=== PATIENT | male | born 1960 | race Caucasian/White ===

== ENCOUNTER 2022-11-22 17:20 | Inpatient (IN) ==
--- NOTE | 2022-11-22 17:27 | ED Triage Note ---
Date of Service November 22, 2022 History of Present Illness This patient was briefly evaluated while in triage. An abbreviated physical exam was performed. This patient is a 62-year-old Male who presents to the ED for evaluation of dizziness, near syncope Just flew in from 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 Nontender to palpation. Initial orders for labs and / or imaging were placed and patient was placed in the waiting area until a bed is available. Please see further documentation for the full ED course. MDM / Impression Impression Impression: Dizziness, Alcohol abuse, LFT elevation
[2022-11-22] MEDS ORDERED: SODIUM CHLORIDE 0.9% 1000ML 1,000 ML IV SCH (17:30)
[2022-11-22 18:10] LABS: Basophils # (auto) 0.04 K/uL (0-0.2); Basophils % (auto) 0.7 %; Eosinophils # (auto) 0.12 K/uL (0-0.50); Eosinophils % (auto) 2.2 %; Hematocrit (blood only) 46.4 % (42.0-52.0); Immature Granulocytes # (auto) 0.04 K/uL (0.01-0.20); Immature Granulocytes % (auto) 0.7 %; Lymphocytes # (auto) 0.57 K/uL (1.2-3.4); Lymphocytes % (auto) 10.3 %; Mean Corpuscular Hemoglobin 32.3 pg (25.0-34.0); Mean Corpuscular Hgb Conc 34.5 g/dL (32.0-36.0); Mean Corpuscular Volume 93.7 fL (80.0-100.0); Mean Platelet Volume 9.7 fL (9.4-12.4); Monocytes # (auto) 0.84 K/uL (0.11-0.59); Monocytes % (auto) 15.1 %; Neutrophils # (auto) 3.95 K/uL (1.40-6.50); Platelet Count 169 K/uL (130-400); RDW Coefficient of Variation 13.2 % (11.5-14.5); RDW Standard Deviation 45.4 fL (36.4-46.3); Red Blood Count 4.95 M/uL (4.70-6.10); White Blood Count 5.56 K/ul (4.8-10.8)
[2022-11-22 18:15] LABS: Alanine Aminotransferase 52 U/L (7-52); Albumin Globulin Ratio 0.9 (0.9-2); Albumin Level 4.1 gm/dl (3.4-5.0); Alkaline Phosphatase 89 U/L (34-104); Anion Gap 9 (3-11); Aspartate Aminotransferase 84 U/L (13-39); BUN Creatinine Ratio 7.8 (10-20); Bilirubin,Total 0.6 mg/dl (0.2-1.0); Blood Urea Nitrogen 8 mg/dl (6-23); Calcium 9.3 mg/dl (8.6-10.3); Carbon Dioxide 23 mmol/L (21-32); Chloride 102 mmol/L (98-107); Est GFR (African American) 89.8 ml/min; Est GFR (Non-African American) 77.5 ml/min; Globulin 4.6 gm/dl (2.5-4.0); Glucose 166 mg/dl (70-99(Fasting)); Potassium 3.8 mmol/L (3.5-5.1); Sodium 134 mmol/L (136-145); Total Protein 8.7 gm/dl (6.0-8.3)
[2022-11-22 18:22] LABS: Troponin I High Sensitivity 3.9 pg/ml (0-20)
[2022-11-22] MEDS ORDERED: LORazepam 2 MG/1 ML VIAL IV STA (18:43)
[2022-11-22] MEDS ORDERED: ONDANSETRON INJ 2 MG/ML 2 ML VIAL IV STA (18:43)
[2022-11-22] MEDS ORDERED: SODIUM CHLORIDE 0.9% 1000ML 1,000 ML IV ONE (18:44)
--- NOTE | 2022-11-22 18:54 | Emergency Department Note ---
Impression & Plan Pulmonary embolism, bilateral, Dizziness, Alcohol abuse, LFT elevation, COVID- 19 ED Provider Note INFORMANT: Patient and sister ED PROVIDER(S): Steve Rodriguez MD CHIEF COMPLAINT: Dizziness, near syncope PLAN: Disposition: Admitted Condition: Good Outpatient prescription management: none Referral: None MEDICAL DECISION MAKING: Patient presented due to the above complaints. He had a work-up initiated. The patient's ECG did not show any acute ischemia. Cardiac monitoring revealed no evidence of dysrhythmia. The patient had elevation of LFTs noted. Patient admits to drinking. He was treated with IV hydration and IV Ativan. The patient was feeling better on reassessment. D-dimer was significantly elevated. Ultrasound imaging of the legs did not reveal any DVT. Small hematoma noted. The patient was found to have bilateral pulmonary emboli. Timing of this was difficult to assess by history and imaging. In light of the findings and patient's situation I discussed further management in the hospital. Patient and sister were in agreement. Consultation was made with Dr. Anil Montana of the [facility] service. Patient was evaluated in the ER for further management. COVID screening performed and was positive. After discussion with internal medicine, hypercoagulability labs were requested and ordered. After review of the information above and other included data, I feel the patient requires further management in the hospital. Triage Nursing notes reviewed and agree them. Vital Signs: reviewed and remarkable for hypertension Prior /Outside records reviewed: None available Differential diagnosis: Fatigue, toxic effects of alcohol, infection, dehydration, metabolic abnormality, hypo/hyperglycemia, electrolyte disturbance, anemia, hypoxia, cardiac sources, intracerebral event, toxicologic, neurologic, as well as other pathologies. Diagnostics, as interpreted by me: ECG: Twelve-lead ECG reveals normal sinus rhythm at [address] elevation or depression. Poor baseline data. Left axis deviation. Cardiac Monitoring: Cardiac monitoring ordered by me: The patient was placed on continuous cardiac monitoring and observed. It revealed a normal sinus rhythm at 81 beats per minute without ectopy or evidence of dysrhythmia. Medical decision rules: none Imaging studies: CT scan of the chest revealed bilateral pulmonary emboli. No DVT by venous leg ultrasound bilaterally. HPI: The patient is a 62year old male who presents to the Emergency Room with complaints of dizziness and near syncope. This started just prior to arrival and occurred after getting off the plane. The patient states that he was drinking a lot of alcohol yesterday evening until about 2300 hrs. He then went to bed and woke up at 0100 hrs, 2 hours later, and traveled to his local airport [place] to then fly to [place], to [place], and then to [place]. Patient states he did not eat today. During his last part of his flight path he began feeling somewhat dizzy, transient nausea, and shaky. He felt like he was dehydrated. Patient does not believe he had full syncope. He denies hitting his head or any trauma. He still feels shaky. The patient has taken no medication for relieving factors. Current pain is rated as 0/10. Patient states he consumes about a dozen beers daily. Pt denies LOC, headache, fevers, chills, diaphoresis, visual changes, neck pain, chest pain, breathing difficulties, vomiting, abdominal pain, back pain, melena, hematochezia, urinary symptoms, numbness, focal weakness, lymphadenopathy, rash, or other complaints. PAST MEDICAL HISTORY: See Below, hypothyroidism PAST SURGICAL HISTORY: See Below, hernia repair SOCIAL HISTORY: See Below, heavy alcohol use HOME MEDICATIONS: See Below ALLERGIES: See Below VITALS: See Below PHYSICAL EXAMINATION: GENERAL: Awake, alert, anxious tremulous but no focal-appearing, in no distress HENT: Normocephalic, atraumatic. Oropharynx unremarkable. EYES: Normal conjunctiva. Sclera non-icteric. NECK: Inspection normal. Non-tender. Supple. No nuchal rigidity. FROM. No masses. RESPIRATORY: Clear to auscultation. No wheezes. No rales. Normal respiratory effort. CARDIAC: Normal rate. Normal rhythm. No murmurs. No rubs. Extremities warm and well perfused. Pulses equal. No JVD. GI: Soft, non-distended. No tenderness to palpation. No rebound or guarding. No masses. RECTAL: Deferred. MUSCULOSKELETAL: Atraumatic. Chest examination reveals no tenderness. The back is symmetrical on inspection without obvious abnormality. There is no CVA tenderness to palpation. No joint edema. LOWER EXTREMITIES: Calves are equal size bilaterally and non-tender. No edema. No discoloration. NEURO: Normal sensorium. Tremulous but no focal no sensory or motor deficits noted. No drift. No asterixis. Speech normal. SKIN: No rash or jaundice noted. Past Med/Surg History Medical History (Updated 11/23/22 @ 02:34 by Steve Rodriguez MD) History of hepatitis C Hypothyroidism (acquired) Social History Smoking Status: Never smoker Hx Alcohol Use: Yes Alcohol type: beer Hx Substance Use: No Preferred Language: Divehi Product Safety Head Required: No Beliefs That Will Affect Care: None Current Living Situation: Alone Other Information That Helps Us Care for You: No Feels Safe at Home: Yes Safety Concerns: Feels Safe At This Time Assistive Devices: Glasses Allergies Allergies Allergy/AdvReac Type Severity Reaction Status Date / Time No Known Allergies Allergy Verified 11/22/22 19:17 Home Meds Home Medications Medication Instructions Recorded Confirmed levothyroxine 75 mcg tablet 75 mcg PO DAILY 11/22/22 11/22/22 Results & Data (ED) Vital Signs Vital Signs - 24 hr 11/22/22 17:23 11/22/22 18:29 11/22/22 17:27 Temperature 37 C Temperature Source Temporal Artery Scan Pulse Rate - Lying Pulse Rate - Sitting Pulse Rate - Standing Pulse Rate 98 H 81 84 Pulse Rate [Apical] Respiratory Rate 20 18 Respiratory Effort / Characteristics Non-Labored Spontaneous Respiratory Depth Normal Respiratory Pattern Regular Blood Pressure - Lying Blood Pressure - Sitting Blood Pressure- Standing Blood Pressure 143/90 H Blood Pressure [Right Arm] Blood Pressure Mean 107 Blood Pressure Mean [Right Arm] Pulse Oximetry 99 94 Oxygen Delivery Method Room Air Room Air Sepsis Recent Fever Within 48 Hours No Sepsis New/Unexplained Change in Mental Status No Sepsis Action Taken by Nursing No Action Required 11/22/22 19:28 11/22/22 21:00 11/22/22 22:53 Temperature Temperature Source Pulse Rate - Lying 82 Pulse Rate - Sitting 90 Pulse Rate - Standing 94 H Pulse Rate Pulse Rate [Apical] 79 68 Respiratory Rate 18 20 Respiratory Effort / Characteristics Respiratory Depth Respiratory Pattern Blood Pressure - Lying 144/92 H Blood Pressure - Sitting 143/90 H Blood Pressure- Standing 152/90 H Blood Pressure Blood Pressure [Right Arm] 156/105 H 172/100 H Blood Pressure Mean Blood Pressure Mean [Right Arm] 122 124 Pulse Oximetry 97 96 Oxygen Delivery Method Room Air Room Air Sepsis Recent Fever Within 48 Hours Sepsis New/Unexplained Change in Mental Status Sepsis Action Taken by Nursing Laboratory Data 11/22/22 17:34 11/22/22 17:34 Lab Results 11/22/22 11/22/22 11/22/22 Range/Units 17:25 17:34 17:34 WBC 5.56 (4.8-10.8) K/ul RBC 4.95 (4.70-6.10) M/uL Hgb 16.0 (14.0-18.0) g/dl Hct 46.4 (42.0-52.0) % MCV 93.7 (80.0-100.0) fL MCH 32.3 (25.0-34.0) pg MCHC 34.5 (32.0-36.0) g/dL RDW Std Deviation 45.4 (36.4-46.3) fL RDW Coeff of Amilcar 13.2 (11.5-14.5) % Plt Count 169 (130-400) K/uL MPV 9.7 (9.4-12.4) fL Immature Gran % (Auto) 0.7 % Neut % (Auto) 71.0 % Lymph % (Auto) 10.3 % [place] % (Auto) 15.1 % Eos % (Auto) 2.2 % Baso % (Auto) 0.7 % Neut # (Auto) 3.95 (1.40-6.50) K/uL Lymph # (Auto) 0.57 L (1.2-3.4) K/uL [place] # (Auto) 0.84 H (0.11-0.59) K/uL Eos # (Auto) 0.12 (0-0.50) K/uL Baso # (Auto) 0.04 (0-0.2) K/uL Immature Gran # (Auto) 0.04 (0.01-0.20) K/uL D-Dimer (0-500) ug/L FEU Sodium 134 L (136-145) mmol/L Potassium 3.8 (3.5-5.1) mmol/L Chloride 102 (98-107) mmol/L Carbon Dioxide 23 (21-32) mmol/L Anion Gap 9 (3-11) BUN 8 (6-23) mg/dl Creatinine 1.03 (0.6-1.4) mg/dl Est Cr Clr Drug Dosing Not Reportable Est GFR ( Amer) 89.8 ml/min Est GFR (Non-Af Amer) 77.5 ml/min BUN/Creatinine Ratio 7.8 L (10-20) Glucose 166 H (70-99(Fasting)) mg/dl POC Glucose 172 H (70-99) mg/dl Calcium 9.3 (8.6-10.3) mg/dl Total Bilirubin 0.6 (0.2-1.0) mg/dl AST 84 H (13-39) U/L ALT 52 (7-52) U/L Alkaline Phosphatase 89 (34-104) U/L Troponin I High Sens 3.9 (0-20) pg/ml Total Protein 8.7 H (6.0-8.3) gm/dl Albumin 4.1 (3.4-5.0) gm/dl Globulin 4.6 H (2.5-4.0) gm/dl Albumin/Globulin Ratio 0.9 (0.9-2) Urine Color Urine Appearance (Clear) Urine pH (4.5-7.5) Ur Specific [place] (1.000-1.030) Urine Protein (Negative) Urine Glucose (UA) (Negative) Urine Ketones (Negative) Urine Blood (Negative) Urine Nitrite (Negative) Urine Bilirubin (Negative) Urine Urobilinogen (Negative) Ur Leukocyte Esterase (Negative) SARS-CoV-2, RNA, NAAT (NEGATIVE) 11/22/22 11/22/22 11/22/22 Range/Units 17:35 19:09 22:05 WBC (4.8-10.8) K/ul RBC (4.70-6.10) M/uL Hgb (14.0-18.0) g/dl Hct (42.0-52.0) % MCV (80.0-100.0) fL MCH (25.0-34.0) pg MCHC (32.0-36.0) g/dL RDW Std Deviation (36.4-46.3) fL RDW Coeff of Amilcar (11.5-14.5) % Plt Count (130-400) K/uL MPV (9.4-12.4) fL Immature Gran % (Auto) % Neut % (Auto) % Lymph % (Auto) % [place] % (Auto) % Eos % (Auto) % Baso % (Auto) % Neut # (Auto) (1.40-6.50) K/uL Lymph # (Auto) (1.2-3.4) K/uL [place] # (Auto) (0.11-0.59) K/uL Eos # (Auto) (0-0.50) K/uL Baso # (Auto) (0-0.2) K/uL Immature Gran # (Auto) (0.01-0.20) K/uL D-Dimer 3910 H* (0-500) ug/L FEU Sodium (136-145) mmol/L Potassium (3.5-5.1) mmol/L Chloride (98-107) mmol/L Carbon Dioxide (21-32) mmol/L Anion Gap (3-11) BUN (6-23) mg/dl Creatinine (0.6-1.4) mg/dl Est Cr Clr Drug Dosing Est GFR ( Amer) ml/min Est GFR (Non-Af Amer) ml/min BUN/Creatinine Ratio (10-20) Glucose (70-99(Fasting)) mg/dl POC Glucose (70-99) mg/dl Calcium (8.6-10.3) mg/dl Total Bilirubin (0.2-1.0) mg/dl AST (13-39) U/L ALT (7-52) U/L Alkaline Phosphatase (34-104) U/L Troponin I High Sens (0-20) pg/ml Total Protein (6.0-8.3) gm/dl Albumin (3.4-5.0) gm/dl Globulin (2.5-4.0) gm/dl Albumin/Globulin Ratio (0.9-2) Urine Color Yellow Urine Appearance Clear (Clear) Urine pH 6.0 (4.5-7.5) Ur Specific [place] 1.015 (1.000-1.030) Urine Protein Negative (Negative) Urine Glucose (UA) 1+ H (Negative) Urine Ketones Negative (Negative) Urine Blood Negative (Negative) Urine Nitrite Negative (Negative) Urine Bilirubin Negative (Negative) Urine Urobilinogen Negative (Negative) Ur Leukocyte Esterase Negative (Negative) SARS-CoV-2, RNA, NAAT POSITIVE A* (NEGATIVE) Administered Medications Potassium Chloride/Sodium Chloride (Normal Saline W/20 Meq Kcl) 20 meq in 1,000 mls @ 80 mls/hr IV .[id number] [facility] Stop: 11/23/22 13:29 Last Admin: 11/23/22 01:01 Dose: 80 mls/hr Documented By: JOSH Discontinued Medications Enoxaparin Sodium (Enoxaparin 80 Mg/0.8 Ml Syr) 80 mg SQ 0100 ONE Stop: 11/23/22 01:01 Last Admin: 11/23/22 01:02 Dose: 80 mg Documented By: JOSH Sodium Chloride (Nss 1000ml) 1,000 mls @ 999 mls/hr IV .Q1H1M KAREEM Stop: 11/22/22 18:30 Last Infusion: 11/22/22 19:21 Dose: 0 mls/hr Documented By: Admin: 11/22/22 17:34 Dose: 999 mls/hr Documented By: ZEE Sodium Chloride (Nss 1000ml) 1,000 mls @ 999 mls/hr IV .Q1H1M ONE Stop: 11/22/22 19:44 Last Infusion: 11/22/22 20:01 Dose: 0 mls/hr Documented By: Admin: 11/22/22 19:00 Dose: 999 mls/hr Documented By: ORLIN Dexamethasone 10 mg/ Syringe 2.5 mls @ 1 mls/min IV 0100 ONE Stop: 11/23/22 01:02 Last Admin: 11/23/22 01:02 Dose: 1 mls/min Documented By: JOSH Ioversol (Optiray 320 500ml) 114 ml IV ONCE ONE Stop: 11/22/22 20:48 Last Admin: 11/22/22 20:48 Dose: 114 ml Documented By: MATTHIEU Lorazepam (Lorazepam 2 Mg/1 Ml Vial) 1 mg IV NOW STA Stop: 11/22/22 18:44 Last Admin: 11/22/22 19:02 Dose: 1 mg Documented By: ORLIN Ondansetron HCl (Ondansetron Inj 2 Mg/Ml 2 Ml Vial) 4 mg IV NOW STA Stop: 11/22/22 18:44 Last Admin: 11/22/22 19:02 Dose: 4 mg Documented By: ORLIN Imaging Data Radiologist's Impression: Chest CTA 11/22/22 19:33 CT ANGIOGRAM OF THE CHEST CLINICAL HISTORY: Near syncope. Elevated d-dimer. COMPARISON STUDY: No priors. TECHNIQUE: Following the IV administration of 114 cc of Optiray 320, CT angiogram of the chest was performed from the upper abdomen to the thoracic inlet utilizing the pulmonary embolus protocol. Images are reviewed in the axial, sagittal, and coronal planes. 3-D MIPS images are created and assessed. IV contrast was administered without complication. A dose lowering technique was utilized adhering to the principles of ALARA. CT DOSE: 414.07 mGy.cm FINDINGS: Thyroid: Mildly atrophic and heterogeneous. Thoracic aorta: The thoracic aorta is normal in caliber and demonstrates standard 3-vessel arch anatomy. No dissection is seen. Pulmonary vasculature: The pulmonary trunk is normal in caliber. There are no f illing defects identified in main, lobar, or segmental pulmonary branches to typical for acute pulmonary embolus. There are numerous small chronic appearing pulmonary emboli seen bilaterally within branches of the right lower lobe pulmonary artery (images #96, #110, and #128), in the right middle lobe on image #100, within branches of the left lower lobe pulmonary artery (images #143 and #144), and within the left upper lobe and lingular pulmonary arteries (images #157 and #168). Heart: The heart is normal in size and without pericardial effusion. Lungs and pleural spaces: There is bibasilar scarring/atelectasis. No airspace consolidation typical for pneumonia or pleural effusion is identified. The trachea and central airways are clear. Mediastinum: There is no mediastinal lymphadenopathy. [place]: Clear. Axillae: There is no axillary lymphadenopathy. Upper abdomen: The liver is steatotic. There is a small hiatal hernia. Skeletal structures: No lytic or blastic bony lesions are seen. Mild degenerative change is noted in the shoulders and spine. IMPRESSION: 1. There are no filling defects typical for acute pulmonary embolus identified in the main, lobar, or segmental pulmonary arteries. 2. There are numerous small chronic appearing pulmonary emboli seen bilaterally as detailed above. 3. There is no airspace consolidation or pleural effusion. 4. Hepatic steatosis. 5. Additional findings as above. ACT 112: Negative or not required by law. Electronically signed by: Imer Manzo M.D. 11/22/2022 8:56 PM Venous Doppler Study 11/22/22 19:46 ULTRASOUND BILATERAL LOWER EXTREMITY VENOUS CLINICAL HISTORY: Syncope. Elevated d-dimer. COMPARISON STUDY: No priors. TECHNIQUE: Real-time, grayscale, and color Doppler sonography of the deep veins of the right and left lower extremity was performed from the inguinal crease to the calf. Compression and augmentation were utilized. FINDINGS: There is no sonographic evidence of deep venous thrombosis identified in the right or left lower extremity. The common femoral, superficial femoral, and popliteal veins are patent and normally compressible bilaterally. The greater saphenous vein and the profunda femoris vein at the junction with the common femoral vein are clear in both legs. The visualized calf veins are patent bilaterally. A small a mildly complex fluid collection within the lateral right calf measures 3.2 x 1.3 x 1.3 cm. No internal flow was shown color imaging. IMPRESSION: 1. There is no sonographic evidence of deep venous thrombosis identified in the right or left lower extremity. 2. There is a small and mildly complex fluid collection within the lateral right calf as detailed above. This likely represents a small seroma or hematoma. Clinical correlation will be required and clinical follow-up to resolution is recommended. ACT 112: Negative or not required by law. Electronically signed by: Imer Manzo M.D. 11/22/2022 8:34 PM Discharge Plan Visit Data Chief Complaint: Syncope Stated Complaint: FAINTED AFTER FLIGHT ED Provider: Steve Rodriguez Discharge Problem: Pulmonary embolism, bilateral, Dizziness, Alcohol abuse, LFT elevation, COVID- 19 Patient Disposition: Admitted As Inpatient Discharge Instructions Interventions: ED Discharge Assessment Last Done: 11/22/22 23:45
[2022-11-22 19:20] LABS: Appearance Urine Clear (Clear); Bilirubin Urine Negative (Negative); Blood Urine Negative (Negative); Color Urine Yellow; Glucose Urine UA 1+ (Negative); Ketones Urine Negative (Negative); Leukocyte Esterase Urine Negative (Negative); Nitrite Urine Negative (Negative); Protein Urine Negative (Negative); Specific Gravity Urine 1.015 (1.000-1.030); Urobilinogen Urine Negative (Negative)
[2022-11-22 19:25] LABS: D Dimer 3910 ug/L FEU (0-500)
--- NOTE | 2022-11-22 20:36 | Ultrasound Report ---
ULTRASOUND BILATERAL LOWER EXTREMITY VENOUS CLINICAL HISTORY: Syncope. Elevated d-dimer. COMPARISON STUDY: No priors. TECHNIQUE: Real-time, grayscale, and color Doppler sonography of the deep veins of the right and left lower extremity was performed from the inguinal crease to the calf. Compression and augmentation wer e utilized. FINDINGS: There is no sonographic evidence of deep venous thrombosis identified in the right or left lower extremity. The common femoral, superficial femoral, and popliteal veins are patent and normally compressible bilaterally. The greater saphenous vein and the profunda femoris vein at the junction w ith the common femoral vein are clear in both legs. The visualized calf veins are patent bilaterally. A small a mildly complex fluid collection within the lateral right calf measures 3.2 x 1.3 x 1.3 cm. No internal flow was shown color imaging. IMPRESSION: 1. There is no sonographic evidence of deep venous thrombosis identified in the right or left lower e xtremity. 2. There is a small and mildly complex fluid collection within the lateral right calf as detailed abo ve. This likely represents a small seroma or hematoma. Clinical correlation will be required and clin ical follow-up to resolution is recommended. ACT 112: Negative or not required by law. Electronically signed by: Imer Manzo M.D. 11/22/2022 8:34 PM
[2022-11-22] MEDS ORDERED: OPTIRAY 320 500ml IV ONE (20:47)
--- NOTE | 2022-11-22 20:59 | CT Scan Report ---
CT ANGIOGRAM OF THE CHEST CLINICAL HISTORY: Near syncope. Elevated d-dimer. COMPARISON STUDY: No priors. TECHNIQUE: Following the IV administration of 114 cc of Optiray 320, CT angiogram of the chest was pe rformed from the upper abdomen to the thoracic inlet utilizing the pulmonary embolus protocol. Images are reviewed in the axial, sagittal, and coronal planes. 3-D MIPS images are created and assessed. I V contrast was administered without complication. A dose lowering technique was utilized adhering to the principles of ALARA. CT DOSE: 414.07 mGy.cm FINDINGS: Thyroid: Mildly atrophic and heterogeneous. Thoracic aorta: The thoracic aorta is normal in caliber and demonstrates standard 3-vessel arch anato my. No dissection is seen. Pulmonary vasculature: The pulmonary trunk is normal in caliber. There are no filling defects identif ied in main, lobar, or segmental pulmonary branches to typical for acute pulmonary embolus. There are numerous small chronic appearing pulmonary emboli seen bilaterally within branches of the right lowe r lobe pulmonary artery (images #96, #110, and #128), in the right middle lobe on image #100, within branches of the left lower lobe pulmonary artery (images #143 and #144), and within the left upper lo be and lingular pulmonary arteries (images #157 and #168). Heart: The heart is normal in size and without pericardial effusion. Lungs and pleural spaces: There is bibasilar scarring/atelectasis. No airspace consolidation typical for pneumonia or pleural effusion is identified. The trachea and central airways are clear. Mediastinum: There is no mediastinal lymphadenopathy. Josette: Clear. Axillae: There is no axillary lymphadenopathy. Upper abdomen: The liver is steatotic. There is a small hiatal hernia. Skeletal structures: No lytic or blastic bony lesions are seen. Mild degenerative change is noted in the shoulders and spine. IMPRESSION: 1. There are no filling defects typical for acute pulmonary embolus identified in the main, lobar, or segmental pulmonary arteries. 2. There are numerous small chronic appearing pulmonary emboli seen bilaterally as detailed above. 3. There is no airspace consolidation or pleural effusion. 4. Hepatic steatosis. 5. Additional findings as above. ACT 112: Negative or not required by law. Electronically signed by: Imer Manzo M.D. 11/22/2022 8:56 PM
--- NOTE | 2022-11-22 22:56 | History & Physical Report ---
Date of Service November 22, 2022 Assessment & Plan (1) Pulmonary embolism, bilateral: (2) Hypothyroidism (acquired): (3) History of hepatitis C: (4) Near syncope: (5) COVID-19: (6) Dizziness: (7) Alcohol abuse: (8) LFT elevation: (9) Peripheral neuropathy: Plan Near syncope- Patient reports that as he was walking from the airplane, if he did not kneel down, he felt like he was going to pass out altogether. Contributing factors include but are not limited to: Alcohol withdrawal, chronic PEs, dehydration, neuropathy, COVID-19 infection Bilateral pulmonary emboli- Involving right lower lobe, right middle lobe, left lower lobe, left upper lobe and lingula CT suggest chronic PEs, which would be consistent with patient's history of being short of breath over the past month or so while shoveling snow in [place] Bilateral lower extremity venous Dopplers are negative Patient did test COVID 19 positive, which may be a potential trigger Hypercoagulable work-up ordered, as there is a family history of a brother with VTE's COVID-19 infection- We will place patient on dexamethasone 10 mg IV now and then 6 mg IV every morning Patient is not hypoxic, and will therefore not be placed on remdesivir IV Suspect this is not an acute infection, and may have been a trigger for his PEs as noted above. Patient may be a long COVID patient Alcohol abuse- Patient reports drinking 10-12 beers a day over the past year and a half. He had drank for about 10 years, and then was alcohol free for a few years, and then began to drink again about a year and half ago History hepatitis C- Patient has completed a course of therapy He reports his liver enzymes had normalized Elevated AST- May be secondary to alcohol use, as patient reports his liver enzymes had normalized after treatment of hepatitis C Check CT abdomen pelvis without contrast to further assess Hypothyroidism- Continue levothyroxine 75 mcg daily Peripheral neuropathy- Contributing factors including but not limited to: Alcoholism, B vitamin deficiency, others History of right lower extremity L5 radiculopathy- When he has symptoms, he has pain radiating to his right buttock area, but nothing at this time History of Present Illness Chief Complaint: Patient presents to the emergency department with complaint of lightheadedness, dizziness, fatigue and nearly passed out as he was walking from his airplane, and notes to the ground, from which she took from [place] to [place]. Primary Care Provider: NO PCP The patient is a 62-year-old male with a past medical history including hypothyroidism, hepatitis C, and alcohol abuse who presents to the emergency department with the above symptoms. He reports that he had noted some shortness of breath over the past few months, and had noted more than usual difficulty and shoveling the 4 feet of snow which remains in his property in the state of [place]. Allergies Allergy/AdvReac Type Severity Reaction Status Date / Time No Known Allergies Allergy Verified 11/22/22 19:17 Home Medications Medication Instructions Recorded Confirmed Type levothyroxine 75 mcg tablet 75 mcg PO DAILY 11/22/22 11/22/22 History Past Med/Surg History Medical History (Updated 11/23/22 @ 03:03 by Anil [place] MD) Family history of pulmonary embolism History of hepatitis C Hypothyroidism (acquired) Surgical History (Updated 11/23/22 @ 03:03 by Anil [place] MD) History of right inguinal hernia repair Social History Smoking Status: Never smoker Hx Alcohol Use: Yes Alcohol type: beer Hx Substance Use: No Preferred Language: Ivorian Log Buncher Required: No Beliefs That Will Affect Care: None Current Living Situation: Alone Other Information That Helps Us Care for You: No Feels Safe at Home: Yes Safety Concerns: Feels Safe At This Time Assistive Devices: Glasses Review of Systems Review of Systems: The patient denies chest pain, palpitations, cough, lower extremity swelling, sore throat, fevers, chills, sweats, nausea, vomiting, diarrhea , constipation, abdominal pain, pelvic pain, blood in urine or stool, dysuria, urinary frequency or urgency, memory loss, loss of consciousness, rash, abnormal bruising or bleeding, focal weakness, numbness or tingling in arms or legs, back or neck pain, or night sweats. The review of systems is otherwise negative other than for that already noted above, and at least 10 systems have been reviewed. Physical Exam Physical Exam: The patient is awake, alert and oriented 3, well developed and well nourished, normocephalic and atraumatic, lying in bed and in no acute distress. HEENT--PERRL, EOMI, mucous membranes and oropharynx dry. Neck--supple. No JVD. No bruits. Thyroid normal, trachea midline, no adenopat hy. Heart--normal S1 and S2. No murmurs, rubs or gallops. Lungs--clear bilaterally, no respiratory distress, no accessory muscle use. Abdomen--normal bowel sounds and soft. Nontender. Nondistended, no hernias or masses, no organomegaly. Extremities--no cyanosis or clubbing. No edema. Dermatologic--normal skin turgor, normal color, no abnormal lymph nodes, no rash. Neurologic--cranial nerves II through XII grossly intact. Rheumatologic--normal range of motion. Psychiatric--normal affect. Results & Data Results & Data Vital Signs (Past 12 Hours) Vital Signs Temp Pulse Pulse Resp BP BP Pulse Ox 11/22/22 22:53 68 20 172/100 H 96 11/22/22 21:00 79 18 156/105 H 97 11/22/22 17: 84 18 94 11/22/22 18:29 81 11/22/22 17:23 37 C 98 H 20 143/90 H 99 O2 Del Method 11/22/22 22:53 Room Air 11/22/22 21:00 Room Air 11/22/22 17:27 Room Air 11/22/22 18:29 11/22/22 17:23 Room Air Laboratory Results Laboratory Results WBC 5.56 K/ul (4.8-10.8) 11/22/22 17:34 RBC 4.95 M/uL (4.70-6.10) 11/22/22 17:34 Hgb 16.0 g/dl (14.0-18.0) 11/22/22 17:34 Hct 46.4 % (42.0-52.0) 11/22/22 17:34 MCV 93.7 fL (80.0-100.0) 11/22/22 17:34 MCH 32.3 pg (25.0-34.0) 11/22/22 17: MCHC 34.5 g/dL (32.0-36.0) 11/22/22 17:34 RDW Std Deviation 45.4 fL (36.4-46.3) 11/22/22 17: RDW Coeff of Amilcar 13.2 % (11.5-14.5) 11/22/22 17:34 Plt Count 169 K/uL (130-400) 11/22/22 17:34 MPV 9.7 fL (9.4-12.4) 11/22/22 17:34 Immature Gran % (Auto) 0.7 % 11/22/22 17:34 Neut % (Auto) 71.0 % 11/22/22 17:34 Lymph % (Auto) 10.3 % 11/22/22 17:34 [place] % (Auto) 15.1 % 11/22/22 17:34 Eos % (Auto) 2.2 % 11/22/22 17:34 Baso % (Auto) 0.7 % 11/22/22 17:34 Neut # (Auto) 3.95 K/uL (1.40-6.50) 11/22/22 17:34 Lymph # (Auto) 0.57 K/uL (1.2-3.4) L 11/22/22 17:34 [place] # (Auto) 0.84 K/uL (0.11-0.59) H 11/22/22 17:34 Eos # (Auto) 0.12 K/uL (0-0.50) 11/22/22 17:34 Baso # (Auto) 0.04 K/uL (0-0.2) 11/22/22 17:34 Immature Gran # (Auto) 0.04 K/uL (0.01-0.20) 11/22/22 17:34 D-Dimer 3910 ug/L FEU (0-500) H* 11/22/22 17:35 Sodium 134 mmol/L (136-145) L 11/22/22 17:34 Potassium 3.8 mmol/L (3.5-5.1) 11/22/22 17:34 Chloride 102 mmol/L (98-107) 11/22/22 17:34 Carbon Dioxide 23 mmol/L (21-32) 11/22/22 17:34 Anion Gap 9 (3-11) 11/22/22 17:34 BUN 8 mg/dl (6-23) 11/22/22 17:34 Creatinine 1.03 mg/dl (0.6-1.4) 11/22/22 17:34 Est Cr Clr Drug Dosing Not Reportable 11/22/22 17:34 Est GFR ( Amer) 89.8 ml/min 11/22/22 17:34 Est GFR (Non-Af Amer) 77.5 ml/min 11/22/22 17:34 BUN/Creatinine Ratio 7.8 (10-20) L 11/22/22 17:34 Glucose 166 mg/dl (70-99(Fasting)) H 11/22/22 17:34 POC Glucose 172 mg/dl (70-99) H 11/22/22 17:25 Calcium 9.3 mg/dl (8.6-10.3) 11/22/22 17:34 Total Bilirubin 0.6 mg/dl (0.2-1.0) 11/22/22 17:34 AST 84 U/L (13-39) H 11/22/22 17:34 ALT 52 U/L (7-52) 11/22/22 17:34 Alkaline Phosphatase 89 U/L (34-104) 11/22/22 17:34 Troponin I High Sens 3.9 pg/ml (0-20) 11/22/22 17:34 Total Protein 8.7 gm/dl (6.0-8.3) H 11/22/22 17:34 Albumin 4.1 gm/dl (3.4-5.0) 11/22/22 17:34 Globulin 4.6 gm/dl (2.5-4.0) H 11/22/22 17:34 Albumin/Globulin Ratio 0.9 (0.9-2) 11/22/22 17:34 Urine Color Yellow 11/22/22 19:09 Urine Appearance Clear (Clear) 11/22/22 19:09 Urine pH 6.0 (4.5-7.5) 11/22/22 19:09 Ur Specific [place] 1.015 (1.000-1.030) 11/22/22 19:09 Urine Protein Negative (Negative) 11/22/22 19:09 Urine Glucose (UA) 1+ (Negative) H 11/22/22 19:09 Urine Ketones Negative (Negative) 11/22/22 19:09 Urine Blood Negative (Negative) 11/22/22 19:09 Urine Nitrite Negative (Negative) 11/22/22 19:09 Urine Bilirubin Negative (Negative) 11/22/22 19:09 Urine Urobilinogen Negative (Negative) 11/22/22 19:09 Ur Leukocyte Esterase Negative (Negative) 11/22/22 19:09 SARS-CoV-2, RNA, NAAT POSITIVE (NEGATIVE) A* 11/22/22 22:05 Impressions Chest CTA 11/22/22 19:33 CT ANGIOGRAM OF THE CHEST CLINICAL HISTORY: Near syncope. Elevated d-dimer. COMPARISON STUDY: No priors. TECHNIQUE: Following the IV administration of 114 cc of Optiray 320, CT angiogram of the chest was performed from the upper abdomen to the thoracic inlet utilizing the pulmonary embolus protocol. Images are reviewed in the axial, sagittal, and coronal planes. 3-D MIPS images are created and assessed. IV contrast was administered without complication. A dose lowering technique was utilized adhering to the principles of ALARA. CT DOSE: 414.07 mGy.cm FINDINGS: Thyroid: Mildly atrophic and heterogeneous. Thoracic aorta: The thoracic aorta is normal in caliber and demonstrates standard 3-vessel arch anatomy. No dissection is seen. Pulmonary vasculature: The pulmonary trunk is normal in caliber. There are no filling defects identified in main, lobar, or segmental pulmonary branches to typical for acute pulmonary embolus. There are numerous small chronic appearing pulmonary emboli seen bilaterally within branches of the right lower lobe pulmonary artery (images #96, #110, and #128), in the right middle lobe on image #100, within branches of the left lower lobe pulmonary artery (images #143 and #144), and within the left upper lobe and lingular pulmonary arteries (images #157 and #168). Heart: The heart is normal in size and without pericardial effusion. Lungs and pleural spaces: There is bibasilar scarring/atelectasis. No airspace consolidation typical for pneumonia or pleural effusion is identified. The trachea and central airways are clear. Mediastinum: There is no mediastinal lymphadenopathy. Josette: Clear. Axillae: There is no axillary lymphadenopathy. Upper abdomen: The liver is steatotic. There is a small hiatal hernia. Skeletal structures: No lytic or blastic bony lesions are seen. Mild degenerative change is noted in the shoulders and spine. IMPRESSION: 1. There are no filling defects typical for acute pulmonary embolus identified in the main, lobar, or segmental pulmonary arteries. 2. There are numerous small chronic appearing pulmonary emboli seen bilaterally as detailed above. 3. There is no airspace consolidation or pleural effusion. 4. Hepatic steatosis. 5. Additional findings as above. ACT 112: Negative or not required by law. Electronically signed by: Imer Manzo M.D. 11/22/2022 8:56 PM Venous Doppler Study 11/22/22 19:46 ULTRASOUND BILATERAL LOWER EXTREMITY VENOUS CLINICAL HISTORY: Syncope. Elevated d-dimer. COMPARISON STUDY: No priors. TECHNIQUE: Real-time, grayscale, and color Doppler sonography of the deep veins of the right and left lower extremity was performed from the inguinal crease to the calf. Compression and augmentation were utilized. FINDINGS: There is no sonographic evidence of deep venous thrombosis identified in the right or left lower extremity. The common femoral, superficial femoral, and popliteal veins are patent and normally compressible bilaterally. The greater saphenous vein and the profunda femoris vein at the junction with the common femoral vein are clear in both legs. The visualized calf veins are patent bilaterally. A small a mildly complex fluid collection within the lateral right calf measures 3.2 x 1.3 x 1.3 cm. No internal flow was shown color imaging. IMPRESSION: 1. There is no sonographic evidence of deep venous thrombosis identified in the right or left lower extremity. 2. There is a small and mildly complex fluid collection within the lateral right calf as detailed above. This likely represents a small seroma or hematoma. Clinical correlation will be required and clinical follow-up to resolution is recommended. ACT 112: Negative or not required by law. Electronically signed by: Imer Manzo M.D. 11/22/2022 8:34 PM Code Status & VTE Plan Code Status Full code VTE Prophylaxis Plan VTE Prophylaxis will be ordered: Yes PG Care Time/CCT Total # of Minutes Spent Total Time Spent with Patient: Total time spent is greater than 50% in coordination of care (as documented) at patient's floor/unit and/or counseling patient: Coding Level of Care Code 84366 INT INP/OBS CARE 3/75MIN Diagnoses Pulmonary embolism, bilateral I26.99 Hypothyroidism (acquired) E03.9 History of hepatitis C Z86.19 Near syncope R55 COVID-19 U07.1 Dizziness R42 Alcohol abuse F10.10 LFT elevation R79.89 Peripheral neuropathy G62.9
[2022-11-22] MEDS ORDERED: ENOXAPARIN 1 MG/KG SQ SCH (23:00)
[2022-11-22] MEDS ORDERED: ENOXAPARIN 80 MG/0.8 ML SYR SQ ONE (23:15)
[2022-11-22] MEDS ORDERED: DEXAMETHASONE SOD INJ 4 MG/ML VIAL IV ONE (23:45)
[2022-11-23] MEDS ORDERED: ONDANSETRON INJ 2 MG/ML 2 ML VIAL IV PRN (00:24)
[2022-11-23] MEDS ORDERED: NSS + 20MEQ KCL 20 MEQ/1,000 ML BAG IV SCH (01:00)
[2022-11-23] MEDS ORDERED: dexAMETHasone 10 MG in SYRINGE 0 ML IV ONE (01:00)
[2022-11-23] MEDS ORDERED: ENOXAPARIN 80 MG/0.8 ML SYR SQ ONE (01:00)
[2022-11-23] MEDS ORDERED: Ativan IV Alcohol Withdrawal--Active Protocol IV PRN (02:55)
[2022-11-23] MEDS ORDERED: LORazepam 2 MG/1 ML VIAL IV PRN ×3 (02:55)
[2022-11-23] MEDS ORDERED: LEVOTHYROXINE SODIUM 75 MCG TABLET PO SCH (06:30)
[2022-11-23 07:48] LABS: Basophils # (auto) 0.02 K/uL (0-0.2); Basophils % (auto) 1.2 %; Hematocrit (blood only) 47.2 % (42.0-52.0); Hemoglobin 15.9 g/dl (14.0-18.0); Immature Granulocytes # (auto) 0.01 K/uL (0.01-0.20); Immature Granulocytes % (auto) 0.6 %; Lymphocytes # (auto) 0.39 K/uL (1.2-3.4); Lymphocytes % (auto) 22.7 %; Mean Corpuscular Hemoglobin 32.2 pg (25.0-34.0); Mean Corpuscular Hgb Conc 33.7 g/dL (32.0-36.0); Mean Corpuscular Volume 95.5 fL (80.0-100.0); Mean Platelet Volume 10.3 fL (9.4-12.4); Monocytes # (auto) 0.15 K/uL (0.11-0.59); Monocytes % (auto) 8.7 %; Neutrophils # (auto) 1.15 K/uL (1.40-6.50); Neutrophils % (auto) 66.8 %; Platelet Count 145 K/uL (130-400); RDW Coefficient of Variation 13.2 % (11.5-14.5); RDW Standard Deviation 46.6 fL (36.4-46.3); Red Blood Count 4.94 M/uL (4.70-6.10); White Blood Count 1.72 K/ul (4.8-10.8)
[2022-11-23 08:13] LABS: Albumin Globulin Ratio 0.9 (0.9-2); Albumin Level 3.7 gm/dl (3.4-5.0); BUN Creatinine Ratio 7.3 (10-20); Bilirubin,Total 0.6 mg/dl (0.2-1.0); Calcium 9.2 mg/dl (8.6-10.3); Creatinine Clr Calc Pharmacy 82.4 ml/min; Est GFR (African American) 97.8 ml/min; Est GFR (Non-African American) 84.4 ml/min; Globulin 4.3 gm/dl (2.5-4.0)
--- NOTE | 2022-11-23 08:13 | Hospitalist Progress Note ---
Date of Service November 23, 2022 Assessment & Plan (1) Pulmonary embolism, bilateral: Plan: 62-year-old male with past medical history of hypothyroidism, alcohol abuse, history of hepatitis C who was found to have bilateral pulmonary emboli and positive COVID-19 testing. Bilateral pulmonary emboli- Involving right lower lobe, right middle lobe, left lower lobe, left upper lobe and lingula CT suggest chronic PEs, which would be consistent with patient's history of being short of breath over the past month or so while shoveling snow in [place] Bilateral lower extremity venous Dopplers are negative Patient did test COVID 19 positive, which may be a potential trigger also traveled by airplane recently Hypercoagulable work-up ordered, as there is a family history of a brother with VTE's however, given his age and this being his first clotting episode, he is less likely to have any hypercoagulable disorder Received Lovenox 80 mg IV x1 (1 mg/kg) will switch to Eliquis 10 mg twice daily x7 days and then decrease to 5 mg twice daily thereafter Likely provoked PEs and as such would likely only require 3 months treatment COVID-19 infection- Patient is not hypoxic, and will therefore not be placed on remdesivir IV Received dexamethasone 10 mg IV x1 on admission, currently cough thought to be more likely related to his PEs will defer further dexamethasone dosing Suspect this is not an acute infection, and may have been a trigger for his PEs as noted above. Patient may be a long COVID patient Alcohol abuse- Patient reports drinking 10-12 beers a day over the past year and a half. He had drank for about 10 years, and then was alcohol free for a few years, and then began to drink again about a year and half ago History hepatitis C- Patient has completed a course of therapy He reports his liver enzymes had normalized Elevated AST- May be secondary to alcohol use, as patient reports his liver enzymes had normalized after treatment of hepatitis C CT A/P read pending Hypothyroidism- Continue home levothyroxine 75 mcg daily Peripheral neuropathy- Contributing factors including but not limited to: Alcoholism, B vitamin deficiency, others History of right lower extremity L5 radiculopathy- When he has symptoms, he has pain radiating to his right buttock area, but nothing at this time DVT prophylaxis: Diet: Regular (2) COVID-19: (3) Alcohol abuse: (4) History of hepatitis C: (5) Hypothyroidism (acquired): (6) Peripheral neuropathy: (7) Near syncope: (8) LFT elevation: Admission and Anticipated Discharge Date Admission Date: November 22, 2022 Results & Data Results & Data Vital Signs (Past 12 Hours) Vital Signs Temp Pulse Pulse Resp BP BP BP 11/23/22 07:56 36.8 C 77 18 157/90 H 11/23/22 05:44 36.7 C 78 18 139/87 11/23/22 03:22 37.4 C 63 18 139/87 11/23/22 00:15 73 11/23/22 00:15 11/23/22 00:15 37.3 C 78 16 144/97 H 11/22/22 23:45 61 18 147/83 H 11/22/22 23:28 76 11/22/22 22:53 68 20 172/100 H 11/22/22 21:00 79 18 156/105 H Pulse Ox O2 Del Method 11/23/22 07:56 97 Room Air 11/23/22 05:44 96 Room Air 11/23/22 03:22 96 Room Air 11/23/22 00:15 11/23/22 00:15 Room Air 11/23/22 00:15 98 Room Air 11/22/22 23:45 93 Room Air 11/22/22 23:28 11/22/22 22:53 96 Room Air 11/22/22 21:00 97 Room Air
[2022-11-23] MEDS ORDERED: NEPHROCAPS PO SCH (09:00)
[2022-11-23] MEDS ORDERED: dexAMETHasone 6 MG in SYRINGE 0 ML IV SCH (09:00)
[2022-11-23] MEDS ORDERED: THIAMINE HCL 100 MG TAB PO SCH (09:00)
[2022-11-23] MEDS ORDERED: CYANOCOBALAMIN (B-12) 500 MCG TABLET PO SCH (09:00)
[2022-11-23] MEDS ORDERED: FOLIC ACID 1 MG TAB PO SCH (09:00)
--- NOTE | 2022-11-23 10:23 | CT Scan Report ---
CT SCAN OF THE ABDOMEN AND PELVIS WITHOUT IV CONTRAST CLINICAL HISTORY: Abnormal liver function studies. COMPARISON STUDY: No priors. TECHNIQUE: CT scan of the abdomen and pelvis is performed from the lung bases to the proximal femora. Images are reviewed in the axial, sagittal, and coronal planes. IV contrast was not administered for this examination. A dose lowering technique was utilized adhering to the principles of ALARA. CT DOSE: 314.19 mGy.cm FINDINGS: Lung bases: The heart is normal in size and without pericardial effusion. The lung bases are clear no ting mild bibasilar scarring/atelectasis. Liver: The unenhanced liver is top normal in size, measuring 17.7 cm in length. The liver demonstrate s diffusely diminished attenuation indicating steatosis. There is no intrahepatic biliary ductal dila tation. A 9 mm right lobe hypodensity on image #47 likely represents a cyst but is too small for defi nitive characterization. Gallbladder: Contracted. Spleen: Normal in size and attenuation. Pancreas: The unenhanced pancreas is grossly unremarkable. Adrenal glands: Unremarkable. Kidneys: There is significant and asymmetric atrophy as well as extensive parenchymal scarring of the left kidney as compared to the right. Residual excreted IV contrast is seen within the renal collect ing systems and ureters. This degrades evaluation for renal calculi. Peripherally calcified left uppe r pole cysts measure up to 3.4 cm. A simple cyst in the lower pole measures up to 3.1 cm. A retroaort ic left renal vein is incidentally noted. Abdominal vasculature: The abdominal aorta is normal in course and caliber noting moderate atheroscle rotic calcification. Bowel: There is no bowel obstruction. Mild fecal retention is seen throughout the colon. The appendix is well-visualized and normal. Peritoneum: There is no intraperitoneal free air or abdominal ascites. There is a fat-containing umbi lical hernia. Lymphadenopathy: None. Pelvic viscera: The prostate gland is mildly enlarged and heterogeneous. The bladder is normal as vis ualized, and contains a small amount of excreted contrast. There has been previous hernia repair in t he right lower quadrant and groin. There is a small fat-containing right inguinal hernia. Skeletal structures: The skeletal structures are osteopenic. There is mild lumbosacral spondylosis. N o lytic or blastic lesions are seen. IMPRESSION: 1. No acute infectious or inflammatory findings are identified in the abdomen or pelvis. 2. Hepatic steatosis. 3. There is asymmetric cortical atrophy and significant parenchymal scarring of the left kidney which contains peripherally calcified cysts. These are of low suspicion. Consider precautionary ultrasound follow-up in 6-12 months. 4. Additional findings as above. ACT 112: Negative or not required by law. Electronically signed by: Imer Manzo M.D. 11/23/2022 10:21 AM
--- NOTE | 2022-11-23 11:59 | XCELERA ---
[id number]
[2022-11-23] MEDS ORDERED: APIXABAN 5 MG TABLET PO SCH (12:30)
--- NOTE | 2022-11-23 12:47 | Discharge Summary ---
Date of Service November 23, 2022 Admission HPI Per Admitting Provider The patient is a 62-year-old male with a past medical history including hypothyroidism, hepatitis C, and alcohol abuse who presents to the emergency department with the above symptoms. He reports that he had noted some shortness of breath over the past few months, and had noted more than usual difficulty and shoveling the 4 feet of snow which remains in his property in the state of [place]. Principal Diagnosis Bilateral PEs, alcohol withdrawal Discharge Exam GENERAL: A&Ox3. NAD. HEENT: PERRL, EOMI. Moist mucous membranes. NECK: No JVD. No lymphadenopathy. CHEST/LUNGS: CTAB A/P. No crackles, wheezes, rales, rhonchi. HEART: RRR. No m/g/r. No carotid bruits. ABDOMEN: NT/ND, soft. BS+ x4 EXTREMITIES: No cyanosis, no clubbing, no edema SKIN: Warm and dry. No rashes or lesions. PSYCHIATRIC: Euthymic affect, no SI, no pressured speech, no hallucinations NEUROLOGIC: No FND. CN II-XII grossly intact. Mild tremors in bilateral upper extremities. Discharge Data Allergies Allergy/AdvReac Type Severity Reaction Status Date / Time No Known Allergies Allergy Verified 11/22/22 19:17 Consultations 11/22/22 22:42 ED Decision to Admit Stat Ordered Studies 11/22/22 19:33 CT for pulmonary embolism PE [CT angio chest PE protocol] Stat 11/22/22 19:46 US venous doppler LE BI Urgent 11/23/22 03:08 CT Abd and Pelvis [CT abd pelvis wo con] Routine Hospital Course (1) Pulmonary embolism, bilateral: 62-year-old male with past medical history of hypothyroidism, alcohol abuse, history of hepatitis C who was found to have bilateral pulmonary emboli and positive COVID-19 testing. Bilateral pulmonary emboli- Involving right lower lobe, right middle lobe, left lower lobe, left upper lobe and lingula CT suggest chronic PEs, which would be consistent with patient's history of being short of breath over the past month or so while shoveling snow in [place] Bilateral lower extremity venous Dopplers are negative Patient did test COVID 19 positive and took long airplane trip, which does theoretically increase likelihood of clotting but still not a major provoking factor As such will likely benefit from full VTE tx for 3 months and then lower dose of DOAC for prophylaxis indefinitely Hypercoagulable work-up ordered, as there is a family history of a brother with VTE's however, given his age and this being his first clotting episode, he is less likely to have a hypercoagulable disorder Received Lovenox 80 mg IV x1 (1 mg/kg) on admission Will switch to Eliquis 10 mg twice daily x7 days and then decrease to 5 mg twice daily until 3 months, then would consider 2.5mg BID or even 2.5mg daily -- recommend PCP f/u for this in [place] COVID-19 infection- Patient is not hypoxic, and will therefore not be placed on remdesivir IV Received dexamethasone 10 mg IV x1 on admission, currently cough thought to be more likely related to his PEs will defer further dexamethasone dosing Suspect this is not an acute infection, and may have been a contributor to his PEs as noted above. Alcohol abuse- Patient reports drinking 10-12 beers a day over the past year and a half He had drank for about 10 years, and then was alcohol free for a few years, and then began to drink again about a year and half ago Wants to quit and is hoping to do so after this withdrawal episode Alcohol withdrawal has been mild in hospital with only one dose of Ativan received in ED He feels comfortable with continuing to monitor symptoms at sister's home with her support and a short Librium taper If symptoms worsen he was instructed to return to ED History hepatitis C- Patient has completed a course of therapy He reports his liver enzymes had normalized Elevated AST- May be secondary to alcohol use, as patient reports his liver enzymes had normalized after treatment of hepatitis C CT A/P showing no acute infectious or inflammatory findings, hepatic steatosis. Asymptomatic cortical atrophy and significant parenchymal scarring of the left kidney which contains peripherally calcified cyst. These are of low suspicion. Consider precautionary ultrasound follow-up in 6 to 12 months Kidney cyst Normal kidney function and no symptoms CT A/P results as above Consider f/u US in 6-12 months as above Hypothyroidism- Continue home levothyroxine 75 mcg daily Peripheral neuropathy- Contributing factors including but not limited to: Alcoholism, B vitamin deficiency, others History of right lower extremity L5 radiculopathy- When he has symptoms, he has pain radiating to his right buttock area, but nothing at this time (2) COVID-19: (3) Alcohol abuse: (4) History of hepatitis C: (5) Hypothyroidism (acquired): (6) Peripheral neuropathy: (7) Near syncope: (8) LFT elevation: Total Time Total Time Spent Total Time Spent (In Minutes): >30 Discharge Plan Discharge Items Patient Disposition: Home - Self-Care Reason For Visit: NEAR SYNCOPE, B/1 PE, ALCOHOL WITHDRAWAL Discharge Diagnosis: Bilteral PEs, alcohol withdrawal Activity: Per Instructions section Non-emergency contact: Primary Care Provider Call non-emergency contact if: you have any medication questions and your symptoms worsen Follow-up/Referrals: PCP,NO [Primary Care Provider] - Diet: Regular Addtl Attending Provider Instructions: You were admitted to [facility] due to feeling dizzy and like you were going to pass out. You were found to have pulmonary emboli (blood clots) in both lungs. As such, you were started on an initial dose of an injectable blood thinner called Lovenox. As you continued to be stable without respiratory issues in the hospital, you were transitioned to an oral anticoagulant called Eliquis. You will continue to take this indefinitely as we had discussed. You will start with 10mg twice daily for one week and then transition to 5mg twice daily for the rest of three months. After that, given that you likely have a somewhat increased risk of clotting, we recommend following up with your primary care provider to decide on whether you continue on Eliquis 2.5mg twice daily or once daily thereafter. For your alcohol withdrawal, as we discussed, you are likely to continue to have a mild course of it. As such, we will discharge you home with a short course of Librium as a taper. You will take 50mg twice daily for 2 days, then 50mg daily for two days, then 25mg daily for 2 days. If your withdrawa symptoms worsen at home it is very important that you return to the hospital for reevaluation. Pending Studies at Discharge: No Stand-Alone Forms: My eMagin, Smoking Cessation Medications and DC Order Prescriptions: New Eliquis 5 mg (74 tabs) tablets,dose pack 5 mg PO BID Qty: 74 0RF Rx Instructions: Take 2 pills (10mg) twice daily for 1 week; then take 5mg twice daily chlordiazepoxide HCl 25 mg capsule 25 mg PO UD Qty: 14 0RF Rx Instructions: 2 caps (50mg) BID x 2 days, then 2 caps (50mg) daily x 2 days, then 1 cap (25mg) daily x2 days cyanocobalamin (vitamin B-12) 1,000 mcg tablet 1,000 mcg PO DAILY Qty: 30 2RF thiamine HCl (vitamin B1) 100 mg tablet 100 mg PO DAILY Qty: 30 2RF folic acid 1 mg tablet 1 mg PO DAILY Qty: 30 2RF Continued levothyroxine 75 mcg Tablet 75 mcg PO DAILY Discharge Orders: Discharge Order (Routine); Ordered 11/23/22 Ordered By: Marciano Self/Other Patient Handouts: Pulmonary Embolism Dc Admission Data Admit Date/Time: 11/22/22 22:54 Attending Provider: Marciano Lentz Admit Provider: Anil Montana Primary Care Provider: PCP,NO Other Providers: Anil Montana Other Interventions: Discharge Summary Assessment (RN) Last Done: 11/23/22 13:25 Supervising Physician Co-Signing Physician Notes I personally examined the patient and verified all collazo points of history and exam, discussed case, and agree with decision making with Dr Conley feeling ok overall would very much like to go home. breathing OK - BECK mostly when he first starts but then activity plateaus and breathing gets easier. shaking but no racing heart/diaphoresis. will be staying with his sister, last drink about 1.5 days ago, wants to quit drinking. notes hep C was treated vitals noted nad heent nc at mmm breathing unlabored no accessory muscles good effort mildly tremulous nondiaphoretic PE - moderate provoking factors at worst (plane ride, recent covid) - DOAC - discussed from what i can see and risk of recurrence, would treat open ended - probably full treatment dosing for ~3 months and then reduce to proph dosing - but also discussed this will also be based on follow up/how he's doing, PCP input, bleeding, etc. he expresses good understanding. should have age appropriate cancer screenings, although i do suspect above delineated risks are enough covid - seems to most likely have been recent, doesn't appear c/w active infection. ok to stop steroids. EtOH withdrawal - really wants to go home, symptoms currently mild. 1.5 days after last drink. discussed risk of DTs and that patients can quickly decompensate and with delirium cruelly they would be unaware that they've decompensated. fortunately not showing any of that, and while withdrawal could worsen, more than likely will not significantly worsen. going home with sister - so not alone. he's comfortable with her watching him and bringing him back should he surprisingly develop delirium symptoms, and he will come back if shaking worsens/heart racing//diaphoresis starts. safe for home under these circumstances, and he'll come back if worsening. librium taper to blunt symptoms (discussed that this treatment would not constitute safety - if worsening shoudl come back, but treatment should make current symptoms more tolerable). thiamine, folate borderline // mild b12 deficiency - replace PO, repeat labs in ~3-4 months (switch to parenteral if not improving) safe for home, otherwise as above Resident Activity Tracking Resident Involvement: Resident Care Provided Care Provided: Adult Hospital Medicine
--- NOTE | 2022-11-23 13:44 | Electrocardiogram Report ---
Test Reason : Blood Pressure : / mmHG Vent. Rate : 182 BPM Atrial Rate : 182 BPM P-R Int : 170 ms QRS Dur : 168 ms QT Int : 164 ms P-R-T Axes : 042 -45 000 degrees QTc Int : 285 ms Poor data quality, interpretation may be adversely affected Sinus tachycardia Left axis deviation Low voltage QRS Abnormal ECG No previous ECGs available Confirmed by Jevon Hussein ([id number]) on 11/23/2022 1:43:36 PM Referred By: REFERRED SELF Confirmed By:Jevon Hussein
--- NOTE | 2022-11-23 16:33 | Billing Data ---
Date of Service November 23, 2022 Coding Level of Care Code 32309 IN/OBS DISCH 30 MIN/LESS
== END 2022-11-23 15:00 | disposition home or self-care (01) | DRG 177 ==
LOC: ED 17:20 → 2S 22:54 → SUATTDRO 22:54 → 2S 23:45